=== PATIENT | female | born 1950 | race Two or more races ===

== ENCOUNTER 2021-05-14 23:22 | Emergency (ER) | payer OTHER ==
[~2021-05-14] VITALS: Ht 154.9 cm; Wt 70.8 kg
[2021-05-14] MEDS ORDERED: GLUMETZA500 MG (23:55)
[2021-05-14] MEDS ORDERED: LISINOPRIL10 MG (23:56)
[2021-05-15] MEDS ORDERED: KETO10TA2 PO (00:49)
[2021-05-15] MEDS ORDERED: NORFLEX100MG PO (00:51)
== END 2021-05-15 00:58 | disposition home or self-care (01) ==
LOC: ER 23:22
DX: S30.0XXA Contusion of lower back and pelvis, initial encounter (principal); S70.02XA Contusion of left hip, initial encounter; S70.01XA Contusion of right hip, initial encounter; M54.6 Pain in thoracic spine; W18.09XA Striking against other object with subsequent fall, initial encounter; Y93.89 Activity, other specified; Y92.018 Other place in single-family (private) house as the place of occurrence of the external cause; Y99.8 Other external cause status